=== PATIENT | female | born 1990 | race Caucasian/White ===

== ENCOUNTER 2018-08-05 01:09 | Emergency (ER) | payer MEDICAID ==
[~2018-08-05] VITALS: Ht 172.7 cm; Wt 58.0 kg
[2018-08-05] MEDS ORDERED: SODIUM CHLORIDE 0.9% 1,000 ML IV ONE (01:11)
[2018-08-05] MEDS ORDERED: ONDANSETRON 2MG/ML, 2ML ONE (01:19)
[2018-08-05] MEDS ORDERED: ONDANSETRON 2MG/ML, 2ML IVPush ONE (01:30)
[2018-08-05] MEDS ORDERED: SODIUM CHLORIDE FLUSH 10ML SYR IVF ONE (01:30)
[2018-08-05 04:44] VITALS: BP 103/73
== END 2018-08-05 05:03 | disposition home or self-care (01) ==
LOC: ED 04:50
DX: S06.0X0A Concussion without loss of consciousness, initial encounter (principal); F10.120 Alcohol abuse with intoxication, uncomplicated; R11.10 Vomiting, unspecified
CPT/HCPCS: 70450; 96361; 96374; 99285; J2405; J7030

== ENCOUNTER 2019-11-06 22:33 | Emergency (ER) | payer SELFPAY ==
[~2019-11-06] VITALS: Ht 175.3 cm; Wt 77.0 kg
[2019-11-06 22:37] VITALS: BP 119/68
== END 2019-11-07 00:15 | disposition home or self-care (01) ==
LOC: ED 23:39
DX: S93.401A Sprain of unspecified ligament of right ankle, initial encounter (principal); X50.1XXA Overexertion from prolonged static or awkward postures, initial encounter; Y93.41 Activity, dancing; Y92.29 Other specified public building as the place of occurrence of the external cause; Y99.8 Other external cause status
CPT/HCPCS: 99283; 99284